=== PATIENT | female | born 1995 | race African-American/Black ===

== ENCOUNTER 2021-10-30 13:12 | Observation (INO) | payer MEDICAID ==
[~2021-10-30] VITALS: Ht 157.5 cm; Wt 58.1 kg
== END 2021-10-30 17:15 | disposition home or self-care (01) ==
LOC: 8 EST A/PP 13:12
PROVIDERS: ADMIT Obstetrics & Gynecology; ATTEND Obstetrics & Gynecology
DX: O26.892 Other specified pregnancy related conditions, second trimester (principal); R10.9 Unspecified abdominal pain; Z29.13 Encounter for prophylactic Rho(D) immune globulin; Z3A.27 27 weeks gestation of pregnancy
CPT/HCPCS: 36415; 59025; 86886; 90384; 96372; G0378; 99281; J2791